=== PATIENT | male | born 1955 | race Two or more races ===

== ENCOUNTER 2017-08-13 08:09 | Day surgery (SDC) | payer OTHER ==
[2017-08-13] MEDS ORDERED: MIDAZOLAM 1 MG/ML 2 ML INJ ×2 (09:30)
[2017-08-13] MEDS ORDERED: FENTAnyl 50 MCG/ML VIAL (09:31)
== END 2017-08-13 11:06 | disposition home or self-care (01) ==
LOC: GIL 08:09
DX: D12.6 Benign neoplasm of colon, unspecified (principal); K64.8 Other hemorrhoids
CPT/HCPCS: 45385; 88305